=== PATIENT | female | born 1990 | race Caucasian/White ===

== ENCOUNTER 2018-02-14 10:55 | Day surgery (SDC) | payer OTHER ==
[~2018-02-14] VITALS: Ht 160 cm; Wt 92.5 kg
[~2018-02-14 10:55] MED LIST: BUPRENORPHINE HC8 MG SL; PRENATAL VITAM1 EAC2 PO; TYLENOL EXTRA500 MG PO
--- NOTE | 2018-02-14 11:50 | NUR ---
PATIENT HAS BLUE/GREEN EMESIS OF 100 ML. PATIENT REPORTS NAUSEA WITH EVEN VITAMINS ON AN EMPTY STOMACH. DR. UNGER NOTIFIED.
--- NOTE | 2018-02-14 13:24 | NUR ---
02/14/18 1324 Norah Oviedo 1254- PT ARRIVES TO PACU FROM OR ON 6L O2 VIA MASK WITH SATS 100%. PT REACTIVE TO VERBAL STIMULUS AND ABLE TO COUGH AND DEEP BREATH EFFECTIVELY. RESP EVEN AND UNLABORED. PT VERBALIZES CRAMPING PAIN IN VAGINA AREA. ENMANUEL PAD IN PLACE WITH SMALL AMOUNT OF DRAINAGE NOTED. 1300- PT TITRATED TO RA. SATS 98%. PT COUGHING AND REPORTS FEELING LIKE MORE BLEEDING IS PRESENT. MODERATE AMOUNT OF DRAINAGE AND LARGE CLOT PRESENT. DR. UNGER NOTIFIED AND WILL COME TO VISUALIZE PT. ENMANUEL PAD MORE SATURATED WITH BLOOD. 1315- PT PT COUGHING AND DEEP BREATHING. RA SATS >90%. PT HAD COUGH ON ADMIT AND HAS DECLINED THE NEED FOR FLU VACCCINE AT THIS TIME. 1320- DR. UNGER AT BEDSIDE. MANUAL REMOVAL OF CLOT FROM VAGINA DONE BY DR. UNGER. 75 EBL. NO ACTIVE BLEEDING AFTER CLOT REMOVAL NOTED WITH FUNDAL MASSAGE. METHERGINE ORDERED. 1323- PT SITTING UP AND COUGHING AND STATES SHE FEELS SHE PASSED ANOTHER CLOT. GOLF BALL SIZED CLOT PASSED AND NOTED ON ENMANUEL PAD. DR. UNGER NOTIFIED.
--- NOTE | 2018-02-14 14:07 | NUR ---
SOUP, ICED WATER AND PUDDING GIVEN. CALL LIGHT W/IN REACH. FAMILY @ BS.
[2018-02-14] MEDS ORDERED: MOTRIN IB200 MG PO (14:57)
--- NOTE | 2018-02-14 15:06 | NUR ---
DC INSTRUCTIONS GIVEN IN PRESENCE OF FAMILY AND ALL VERBALIZE UNDERSTANDING. PATIENT DRESSING SELF.
--- NOTE | 2018-02-14 15:28 | NUR ---
LE 1515: PATIENT TRANSFERS SELF TO AND PERSONAL VEHICLE AND DOES THAT WELL.
--- NOTE | 2018-03-25 07:13 | OR ---
[facility] [address] [facility] [place], [place] [address] Signed DATE OF OPERATION: 02/14/2018 SURGEON: Agustina Scott DO PREOPERATIVE DIAGNOSES: 1. Missed , approximately 8 weeks. 2. Rh negative status post RhoGAM. 3. Narcotic dependence in remission. POSTOPERATIVE DIAGNOSES: 1. Missed , approximately 8 weeks. 2. Rh negative status post RhoGAM. 3. Narcotic dependence in remission. SURGERY PERFORMED: Suction D and C. ANESTHESIA: MAC. ESTIMATED BLOOD LOSS: 100 mL. SPECIMEN: Products of conception. COMPLICATION: None. FINDINGS: Normal external genitalia. Normal vagina. Cervix slightly open and easily dilated. Hemostasis at the end of the procedure and products of conception noted in the suction tubing. INDICATIONS: Ms. Ayala is a pleasant 27-year-old, G3, P1-0-2-1, who was recently diagnosed with an intrauterine demise at 8-1/2 weeks. She had a previous early SAB resulting in a suction D and C approximately 6 months ago. She is Rh negative and received RhoGAM in the emergency department. Of note, she has struggled with narcotic dependence in the past and is under treatment with buprenorphine with Dr. Abram Juares. We reviewed options Electronically Signed By: AGUSTINA SCOTT DO 03/25/18 0713 PATIENT NAME: ANAM AYALA OPERATIVE REPORT DATE OF : 88 REPORT #: [id number] PHYSICIAN: AGUSTINA SCOTT DO PCP: MARIS MANNING MD REPORT IS CONFIDENTIAL AND NOT TO BE RELEASED WITHOUT AUTHORIZATION [facility] [address] [place], [place] [address] Signed for treatment of miscarriage including expectant management, medical management, or surgical management. The patient wishes to proceed with suction D and C. We reviewed risks, benefits, and alternatives in detail. TECHNIQUE: The patient was taken to the operating room where a time-out was performed to confirm correct patient, correct procedure. MAC anesthesia was adequately established. The patient was prepped and draped in the dorsal lithotomy position with her feet in Yellofin stirrups. ICPs were on and running. The patient received doxycycline 200 mg p.o. 1 hour preoperatively per ACOG guidelines and no heparin was indicated. A weighted speculum was placed in the vagina and the anterior lip of the cervix was grasped with an Allis clamp. The cervix was serially dilated using Hegar dilators and the cervix was noted to be slightly dilated and soft at the beginning of the procedure. Serial dilation to #11 Hegar dilator was performed, at which point, a #11 curved curette was selected and placed into the cervical os and advanced gently until reached the fundus. Suction was then obtained to the green zone and the curette was slowly withdrawn, performing a circumferential curettage with good return of products of conception. Several passes were made with the suction curette with decreasing amounts of products of conception noted. A large sharp curette was then performed and the intrauterine cavity gently probed and a small amount of products of conception were noted from the left posterior aspect of the vaginal cuff. Another pass was then performed with the suction curettage and no additional products of conception were noted. The uterus began to involute and bleeding stopped. The Allis clamp was removed and the patient was then taken the PACU in good and stable condition. Sponge, needle, and instrument count were correct x2 at the end the procedure. Of note, the patient did have a small amount of bleeding in the PACU and was treated with Methergine 0.2 mg IM x1 dose with no additional bleeding noted. Please see progress note for details. Agustina Scott DO JDW/MODL /[id number] Electronically Signed By: AGUSTINA SCOTT DO 03/25/18 0713 PATIENT NAME: ANAM AYALA OPERATIVE REPORT DATE OF : [birth year] REPORT #: [id number] PHYSICIAN: AGUSTINA SCOTT DO PCP: MARIS MANNING MD REPORT IS CONFIDENTIAL AND NOT TO BE RELEASED WITHOUT AUTHORIZATION [facility] [address] [place] [address] [place] [address] Signed Copies: ~ Electronically Signed By: AGUSTINA SCOTT DO 03/25/18 0713 PATIENT NAME: ANAM AYALA OPERATIVE REPORT DATE OF : [birth year] REPORT #: [id number] PHYSICIAN: AGUSTINA SCOTT DO PCP: MARIS MANNING MD REPORT IS CONFIDENTIAL AND NOT TO BE RELEASED WITHOUT AUTHORIZATION
== END 2018-02-14 15:15 | disposition home or self-care (01) ==
LOC: DS 10:55
PROVIDERS: Obstetrics & Gynecology
PROC: 10D17Z9 Manual Extraction of Products of Conception, Retained, Via Natural or Artificial Opening (ICD-10-PCS; principal; 2018-02-14 12:00)
DX: O02.1 Missed abortion (principal); F11.20 Opioid dependence, uncomplicated; Z79.899 Other long term (current) drug therapy; Z98.890 Other specified postprocedural states
CPT/HCPCS: 00952; 88305; 94640; J1100; J1885; J2210; J2250; J2405; J2704; J3010; J7120

== ENCOUNTER 2018-02-21 12:15 | Emergency (ER) | payer OTHER ==
[~2018-02-21] VITALS: Ht 160 cm; Wt 92.5 kg
[~2018-02-21 12:15] MED LIST changes: +MOTRIN IB200 MG PO
--- OUTSIDE RECORDS SUMMARY | 2018-02-21 12:20 | XMS ---
PreManage Notification: ANAM CHATMAN Security Triage Technician Events No recent Security Events currently on file CRITERIA MET - [facility] 2 Visits in 30 Days CARE PROVIDERS BECKA PRITCHETT Primary Care Current PHONE: Unknown Clarissa Parker Primary Care Current PHONE: Unknown Fred has no Care Guidelines for this patient. [place] VISIT COUNT (12 MO.) [address] [place] [address] TOTAL 2 NOTE: Visits indicate total known visits. ED/UCC VISIT TRACKING (12 MO.) 02/21/2018 12:16 [facility] [place] TYPE: Emergency COMPLAINT: - VAGINAL BLEEDING,POST OP PROBLEM 02/02/2018 17:35 [facility] [place] TYPE: Emergency COMPLAINT: - VAGINAL BLEEDING; APROX. 8 WEEKS DIAGNOSES: - Missed INPATIENT VISIT TRACKING (12 MO.) No inpatient visits to display in this time frame [email or web address]
== END 2018-02-21 14:10 | disposition home or self-care (01) ==
LOC: ED 12:15
DX: N93.9 Abnormal uterine and vaginal bleeding, unspecified (principal); F32.9 Major depressive disorder, single episode, unspecified; F41.9 Anxiety disorder, unspecified; L40.9 Psoriasis, unspecified; Z79.899 Other long term (current) drug therapy
CPT/HCPCS: 80048; 81001; 84702; 85025; 96360; 99284-25; J7030

== ENCOUNTER 2018-10-22 14:49 | Emergency (ER) | payer OTHER ==
[~2018-10-22] VITALS: Ht 160 cm; Wt 99.8 kg
[~2018-10-22 14:49] MED LIST changes: +PROMETHAZINE HC25 M1 PO
--- OUTSIDE RECORDS SUMMARY | 2018-10-22 14:52 | XMS ---
PreManage Notification: ANAM CHATMAN Security Research Quality Assurance Analyst Events No recent Security Events currently on file CRITERIA MET - [facility] - [facility] CARE PROVIDERS KERRI [facility] 02/22/2018-Current PHONE: [phone] BECKA PRITCHETT Primary Care Current PHONE: Unknown RYANNE LAN Primary Care Current PHONE: Unknown Clarissa Parker Primary Care Current PHONE: Unknown Fred has no Care Guidelines for this patient. Care History Medical/Surgical 02/22/2018 [facility] - Patient is currently established with [facility]. If patient is seen in the ED during business hours. Please contact CHWs at [facility]. Care Recommendation: This patient has had 5 or more Emergency Department visits in the last 12 months.\T\nbsp; Patient requires education on the scope and purpose of the ED as an acute care provider not a Primary Care Provider and should not be utilized for chronic conditions.\T\nbsp; These are guidelines and the provider should exercise clinical judgment when providing care. E.D. VISIT COUNT (12 MO.) 4 [facility]. TOTAL 4 NOTE: Visits indicate total known visits. ED/UCC VISIT TRACKING (12 MO.) 10/22/2018 14:50 [facility] [place] [facility] [place] TYPE: Emergency COMPLAINT: - BREATHING ISSUES 09/20/2018 23:18 [facility] [place] [facility] [place] TYPE: Emergency COMPLAINT: - DRUG WITHDRAWL DIAGNOSES: - Opioid dependence with withdrawal 02/21/2018 12:16 [facility] [place] [facility] [place] [place] TYPE: Emergency COMPLAINT: - VAGINAL BLEEDING,POST OP PROBLEM DIAGNOSES: - Other bed bug exterminator (current) drug therapy - Psoriasis, unspecified - Abnormal uterine and vaginal bleeding, unspecified - Anxiety disorder, unspecified - Major depressive disorder, single episode, unspecified 02/02/2018 17:35 [facility] [place] TYPE: Emergency COMPLAINT: - VAGINAL BLEEDING; APROX. 8 WEEKS DIAGNOSES: - Missed INPATIENT VISIT TRACKING (12 MO.) No inpatient visits to display in this time frame [email or web address]
[2018-10-22] MEDS ORDERED: VENTOLIN HFA18 GM INH (15:29)
[2018-10-22] MEDS ORDERED: ZITHROMAX250 MG PO (15:29)
== END 2018-10-22 15:45 | disposition home or self-care (01) ==
LOC: ED 14:49
DX: J18.9 Pneumonia, unspecified organism (principal)
CPT/HCPCS: 71046; 94640; 99283-25

== ENCOUNTER 2018-11-05 14:31 | Emergency (ER) | payer OTHER ==
[~2018-11-05] VITALS: Ht 160 cm; Wt 99.8 kg
[~2018-11-05 14:31] MED LIST changes: +VENTOLIN HFA18 GM INH; +ZITHROMAX250 MG PO
--- OUTSIDE RECORDS SUMMARY | 2018-11-05 14:34 | XMS ---
PreManage Notification: ANAM CHATMAN Security Drafter Commercial Events No recent Security Events currently on file CRITERIA MET - [facility] - Has Care Guidelines - PDMP - [facility] - 2 Visits in 30 Days CARE PROVIDERS MARIS MANNING [facility] 02/22/2018-Current PHONE: [phone] BECKA PRITCHETT Primary Care Current PHONE: Unknown Clarissa Parker Primary Care Current PHONE: Unknown Fred has no Care Guidelines for this patient. Care History Medical/Surgical 02/22/2018 [facility] - Patient is currently established with [facility]. If patient is seen in the ED during business hours. Please contact CHWs at [facility]. Care Recommendation: This patient has [...] providing care. E.D. VISIT COUNT (12 MO.) 5 [facility] [place] TOTAL 5 NOTE: Visits indicate total known visits. ED/UCC VISIT TRACKING (12 MO.) 11/05/2018 14:31 [facility] [place] TYPE: Emergency COMPLAINT: - VOMITING, COUGH 10/22/2018 14:50 [facility] [place] TYPE: Emergency COMPLAINT: - BREATHING ISSUES DIAGNOSES: - Pneumonia, unspecified organism - Wheezing 09/20/2018 23:18 [facility] [place] TYPE: Emergency COMPLAINT: - DRUG WITHDRAWL DIAGNOSES: - Opioid dependence with withdrawal 02/21/2018 12:16 [facility] [place] TYPE: Emergency COMPLAINT: - VAGINAL BLEEDING,POST OP PROBLEM DIAGNOSES: - Other intermediate (current) drug therapy - Psoriasis, unspecified - Abnormal uterine and vaginal bleeding, unspecified - Anxiety disorder, unspecified - Major depressive disorder, single episode, unspecified 02/02/2018 17:35 [facility] [place] TYPE: Emergency COMPLAINT: - VAGINAL BLEEDING; APROX. 8 WEEKS DIAGNOSES: - Missed INPATIENT VISIT TRACKING (12 MO.) No inpatient visits to display in this time frame [email or web address]
[2018-11-05] MEDS ORDERED: ONDANSETRON ODT8 MG PO (16:56)
[2018-11-05] MEDS ORDERED: ALBUTEROL2.5 MG/3 M INH (16:56)
[2018-11-05] MEDS ORDERED: PREDNISONE20 MG PO (16:56)
== END 2018-11-05 17:10 | disposition home or self-care (01) ==
LOC: ED 14:31
DX: J40 Bronchitis, not specified as acute or chronic (principal); J98.01 Acute bronchospasm
CPT/HCPCS: 71046; 94640; 99283-25; J7512

== ENCOUNTER 2019-11-22 15:21 | Emergency (ER) | payer OTHER ==
[~2019-11-22] VITALS: Ht 160 cm; Wt 99.8 kg
[~2019-11-22 15:21] MED LIST changes: +ALBUTEROL2.5 MG/3 M INH; +ONDANSETRON ODT8 MG PO; +PREDNISONE20 MG PO
[2019-11-22] MEDS ORDERED: ZITHROMAX250 MG PO (19:31)
[2019-11-22] MEDS ORDERED: ALBUTEROL2.5 MG/3 M INH (19:31)
[2019-11-22] MEDS ORDERED: PREDNISONE20 MG PO (19:31)
== END 2019-11-22 20:25 | disposition home or self-care (01) ==
LOC: ED 15:21
DX: J45.901 Unspecified asthma with (acute) exacerbation (principal)
CPT/HCPCS: 71046; 80053; 85025; 94640; 96361; 96374; 96375; 99285-25; C9803; J2405; J2930; J7030

== ENCOUNTER 2021-07-21 05:18 | Inpatient (IN) | payer OTHER ==
--- NOTE | 2021-07-21 16:52 | PR ---
[facility] [address] [place], [place] [address] Signed Progress Notes IP Datetime Report Generated by PRETTY: 07/21/2021 16:52 PROGRESS NOTES: [id number] Impression: Reassuring Heart Rate Procedures: Sterile Vag Exam Plan: Continue Present Management Informed Consent Obtain: Vaginal Delivery; Section Delivery Other Informed Consents: Reviewed continued trial of vaginal delivery vs C/S VITAL SIGNS: [id number] Vital Signs: Reviewed; Within Normal Limits EXAM: [id number] Dilatation: 8.0 Effacement: 100 Station: -1 Contractions: Irregular MEMBRANES: [id number] Comments: Physician present and pushing w/ contractions since complete. ROT position noted; attempted resolution of transverse position w/ maternal positional changes and gentle internal rotational maneuvers. Excellent maternal expulsive efforts. Significant caput noted. Discussed options for continued trail of vaginal delivery vs primary LTCS. Reviewed ACOG "Safe Prevention of the Primary C/S" recommendations for allowance of maternal pushing at least 2 hrs and recommendation for manual rotation of occiput as above. Reviewed adequate pelvis, EFW, and last delivery in detail. Pt desires to continue w/ expulsive efforts, but discussed at C/S may be indicated if continued transverse positon and transverse arrest diagnosed. Pt and partner understand and agree. FETUS A: [id number] FHR Baseline: 120 Variability: Moderate 6-25bpm Accelerations: 15X15 Decelerations: None FHR Category: Category I Presentation: Vertex Comments on Fetus A: No evidence of metabolic acidosis FETUS B: [id number] Signing Physician: Agustina Scott DO Copies: *Electronically Signed* 07/21/211651 AGUSTINA SCOTT DO PATIENT NAME: ANAM CHATMAN PROGRESS NOTE DATE OF : 88 PHYSICIAN: AGUSTINA SCOTT DO RPT #: [id number] REPORT IS CONFIDENTIAL AND NOT TO BE RELEASED WITHOUT AUTHORIZATION [address] [place] [address] Signed ~ *Electronically Signed* 07/21/211651 AGUSTINA SCOTT DO PATIENT NAME: ANAM CHATMAN PROGRESS NOTE DATE OF : [birth year] PHYSICIAN: AGUSTINA SCOTT DO RPT #: [id number] REPORT IS CONFIDENTIAL AND NOT TO BE RELEASED WITHOUT AUTHORIZATION
--- NOTE | 2021-07-21 17:23 | PR ---
[facility] [address] [place], [place] [address] Signed Progress Notes IP Datetime Report Generated by CPN: 07/21/2021 17:23 PROGRESS NOTES: [id number] Impression: Arrest of Dilatation/Descent Procedures: Sterile Vag Exam Plan: Deliver- Section Informed Consent Obtain: Section Delivery Other Informed Consents: Reviewed continued trial of vaginal delivery vs C/S VITAL SIGNS: [id number] Vital Signs: Reviewed; Within Normal Limits EXAM: [id number] Dilatation: 8.0 Effacement: 100 Station: -1 Contractions: Irregular MEMBRANES: [id number] Comments: Pt continues w/ excellent maternal expulsive efforts but despite best efforts no descent of the vertex noted. Significant caput and perineal edema noted. Risks / benefits / alternatives discussed in detail and pt and partner wish to proceed w/ delivery. OR crew, anesthesia, and Dr. Huitron notified. FETUS A: [id number] FHR Baseline: 120 Variability: Moderate 6-25bpm Accelerations: 15X15 Decelerations: None FHR Category: Category I Presentation: Vertex Comments on Fetus A: No evidence of metabolic acidosis FETUS B: [id number] Signing Physician: Agustina Scott DO Copies: ~ *Electronically Signed* 07/21/21 1728 AGUSTINA SCOTT DO PATIENT NAME: ANAM CHATMAN PROGRESS NOTE DATE OF : 88 PHYSICIAN: AGUSTINA SCOTT #: [id number] REPORT IS CONFIDENTIAL AND NOT TO BE RELEASED WITHOUT AUTHORIZATION
--- NOTE | 2021-07-21 17:27 | PR ---
[facility] [address] [place], [place] [address] Signed Progress Notes IP Datetime Report Generated by CPN: 07/21/2021 17:27 PROGRESS NOTES: [id number] Impression: Arrest of Dilatation/Descent Procedures: Sterile Vag Exam Plan: Deliver- Section Informed Consent Obtain: Section Delivery Other Informed Consents: Reviewed continued trial of vaginal delivery vs C/S VITAL SIGNS: [id number] Vital Signs: Reviewed; Within Normal Limits EXAM: [id number] Dilatation: 8.0 Effacement: 100 Station: -1 Contractions: Irregular MEMBRANES: [id number] Comments: Also noted, during pushing, pt remembered that Dr. Cottrell did perform vacuum assisted operative delivery during last . Pt reports that she pushed for _ 80 minutes in last labor. FETUS A: [id number] FHR Baseline: 120 Variability: Moderate 6-25bpm Accelerations: 15X15 Decelerations: None FHR Category: Category I Presentation: Vertex Comments on Fetus A: No evidence of metabolic acidosis FETUS B: [id number] Signing Physician: Agustina Scott DO Copies: ~ *Electronically Signed* 07/21/21 8694 AGUSTINA SCOTT DO PATIENT NAME: ANAM CHATMAN PROGRESS NOTE DATE OF : 88 PHYSICIAN: AGUSTINA SCOTT DO RPT #: [id number] REPORT IS CONFIDENTIAL AND NOT TO BE RELEASED WITHOUT AUTHORIZATION
--- NOTE | 2021-07-21 20:16 | NUR ---
07/21/212015 Hortencia Otto-PATIENT BACK TO ROOM FROM OR ON RA. PATIENT IS DROWSY. RATES PAIN 2/10, DENIES NAUSEA. RESP EVEN AND UNLABROED.
--- NOTE | 2021-07-22 07:48 | PR ---
[facility] [address] [place], [place] [address] Signed PP Progress Notes Datetime Report Generated by CPN: 07/22/2021 07:48 SUBJECTIVE: [id number] Pain: Within Normal Limits Nausea/Vomiting: Denies Flatus: Yes Bowel Movement: No Vital Signs: [id number] Vital Signs: Reviewed; Within Normal Limits Cardiovascular: Normal Respiratory: Normal Abdomen/Uterus: Normal Lochia: Normal Vulva/Perineum: Not Done Breasts: Not Done CVA Tenderness: Normal Extremities: Normal Incision: Normal Progress: Normal Exam Comments: Fundus firm U-2 nontender. Incision healing well IMPRESSION/PLAN/PROCEDURES: [id number] Impression: Normal Progression Plan: Continue Present Management Other Procedures: Iron infusion Progress Notes: Pt seen and examined. Doing well. Ambulating, voiding, and tolerating full diet. Pain and lochia minimal. well. No fevers/chills. Hgb 8.8 and pt c/o some dizziness w/ prolonged standing. Pt likely d/c home today or tomorrow as baby is being transferred to [facility] for NICU care. Will reevaluate pt later today Signing Physician: Agustina Scott DO Copies: ~ *Electronically Signed* 07/22/21 0748 AGUSTINA SCOTT DO PATIENT NAME: ANAM CHATMAN PROGRESS NOTE DATE OF : 88 PHYSICIAN: AGUSTINA SCOTT DO RPT #: [id number] REPORT IS CONFIDENTIAL AND NOT TO BE RELEASED WITHOUT AUTHORIZATION
== END 2021-07-22 15:17 | disposition home or self-care (01) | DRG 787 ==
LOC: FBC 05:18
PROVIDERS: ADMIT Obstetrics & Gynecology; ATTEND Obstetrics & Gynecology
PROC: 10D00Z1 Extraction of Products of Conception, Low, Open Approach (ICD-10-PCS; principal; 2021-07-21 17:00)
DX: O99.824 Streptococcus B carrier state complicating childbirth (principal); F11.20 Opioid dependence, uncomplicated; Z3A.37 37 weeks gestation of pregnancy; Z37.0 Single live birth; Z20.822 Contact with and (suspected) exposure to COVID-19; O64.0XX0 Obstructed labor due to incomplete rotation of fetal head, not applicable or unspecified; O62.1 Secondary uterine inertia; O99.324 Drug use complicating childbirth; Z98.890 Other specified postprocedural states; Z79.899 Other long term (current) drug therapy
CPT/HCPCS: 36415; 82728; 82803; 83030; 85027; 85060; 85610; 85730; 86850; 86870; 86900; 86901; 87502; A9270; C9803; J0456; J0690; J1100; J1885; J2405; J2540; J2550; J2590; J2790; J2795; J3010; J3105; J7121; Q0138; U0003

== ENCOUNTER 2024-10-30 15:47 | Inpatient (IN) | payer BC, OTHER ==
[~2024-10-30] VITALS: Ht 160 cm; Wt 104.3 kg
[2024-11-14] MEDS ORDERED: LACTATED RINGER'S 1,000 ML IV PRN (05:30)
[2024-11-14] MEDS ORDERED: SOD+POT BICARB/CITRIC ACID 2 EA TABLET.EFF PO ONE (05:30)
[2024-11-14 06:10] LABS: AMPHETAMINES, URINE NEGATIVE (NEGATIVE); BARBITURATES, URINE NEGATIVE (NEGATIVE); BENZODIAZEPINE, URINE NEGATIVE (NEGATIVE); CANNABINOID, URINE POSITIVE (NEGATIVE); COCAINE, URINE NEGATIVE (NEGATIVE); ECSTASY, URINE NEGATIVE (NEGATIVE); FENTANYL, URINE NEGATIVE (NEGATIVE); METHADONE, URINE NEGATIVE (NEGATIVE); OPIATES, URINE NEGATIVE (NEGATIVE); OXYCODONE, URINE NEGATIVE (NEGATIVE); PHENCYCLIDINE, URINE NEGATIVE (NEGATIVE)
[2024-11-14 06:12] LABS: MCH 31.8 PG (25.6-32.2); MCHC 35.5 g/dL (32.2-35.5); MCV 89.8 fL (79.4-94.8); RBC 3.33 M/uL (3.93-5.22)
[2024-11-14 06:27] VITALS: BP 106/58
[2024-11-14 06:39] LABS: ABO A
[2024-11-14 06:40] LABS: ANTIBODY SCREEN NEGATIVE; RH NEGATIVE
[2024-11-14] MEDS ORDERED: CEFAZOLIN SODIUM 2 GM in SODIUM CHLORIDE 0.9% 100 ML IV SCH (07:00)
[2024-11-14] MEDS ORDERED: LIDOCAINE HCL 2% 5 ML SDV ONE (07:11)
[2024-11-14] MEDS ORDERED: OXYTOCIN 10 UNITS/ML VIAL ONE ×2 (07:11→08:21)
[2024-11-14] MEDS ORDERED: BUPIVACAINE 0.75% IN DEXTROSE 2 ML AMP ONE (07:11)
[2024-11-14] MEDS ORDERED: fentaNYL citrate 100 MCG/2 ML VIAL ONE (07:11)
[2024-11-14] MEDS ORDERED: MORPHINE SULFATE 1 MG/ML VIAL ONE (07:11)
[2024-11-14] MEDS ORDERED: LACTATED RINGER'S 1,000 ML IV ONE ×2 (07:19→08:22)
[2024-11-14 07:27] LABS: AHG CROSSMATCH COMPATIBLE
[2024-11-14] MEDS ORDERED: PHENYLEPHRINE HCL IN 0.9% NACL 1 MG/10 ML SYR ONE (07:41)
[2024-11-14] MEDS ORDERED: NALOXONE HCL 0.4 MG SYR IV PRN (08:00)
[2024-11-14] MEDS ORDERED: PROCHLORPERAZINE EDISYLATE 10 MG/2 ML VIAL IV PRN (08:00)
[2024-11-14] MEDS ORDERED: HYDROmorphone HCL 1 MG/ML SYR IV PRN (08:00)
[2024-11-14] MEDS ORDERED: Ropivacaine HCl 0.5% 30 ML VIAL ONE (08:03)
[2024-11-14] MEDS ORDERED: DEXAMETHASONE SOD PHOS 4 MG/ML VIAL ONE (08:03)
[2024-11-14] MEDS ORDERED: SODIUM CHLORIDE 0.9% 20 ML IV ONE (08:03)
[2024-11-14] MEDS ORDERED: LACTATED RINGER'S 1,000 ML IV SCH (09:07)
[2024-11-14] MEDS ORDERED: PROMETHAZINE HCL 25 MG SUPP PR PRN (09:15)
[2024-11-14] MEDS ORDERED: METOCLOPRAMIDE HCL 10 MG/2 ML SDV IV PRN (09:15)
[2024-11-14] MEDS ORDERED: OXYTOCIN/0.9 % SODIUM CHLORIDE 500 ML IV SCH (09:15)
[2024-11-14] MEDS ORDERED: OXYCODONE/APAP 5/325 TAB PO PRN (09:15)
[2024-11-14] MEDS ORDERED: PROMETHAZINE HCL 25 MG TAB PO PRN (09:15)
[2024-11-14] MEDS ORDERED: HYDROCODONE/ACETA 5/325 TAB PO PRN (09:15)
[2024-11-14 09:36] VITALS: BP 113/67
--- NOTE | 2024-11-14 09:43 | NUR ---
11/14/24 0943 Asha Aguilar 0844- FUNDAL CHECK DONE IN THE OR PRIOR TO TRANSFER TO [facility] ROOM. 0846- PT IS TRANSFERED TO [facility] ROOM 103. PT IS TALKING WITH RN AND SMILING. PT DENIES PAIN AND NAUSEA. BEDSIDE REPORT RECEIVED FROM ABBY LARSEN. IV INFUSING IN THE RIGHT FOREARM, WNL. VITAL SIGNS OBTAINED. PT DENIES ANY DIFFICULTY BREATHING, SPINAL IS AT T-5. 0900- PT REQUESTING WATER AND TO SIT UP SOME IN BED. SIP OF WATER PROVIDED AND HOB INCREASED SLIGHTLY. PT CONTINUES TO DENY PAIN AND NAUSEA. 919-LR INFUSING IN R FOREARM, WNL. PT DENIES PAIN AND NAUSEA. BABY AT BREAST. BEDSIDE REPORT GIVEN TO ELISA GUPTA. ALL QUESTIONS AND CONCERNS ANSWERED. BED PLUGGED IN AND LOCKED. CARE TURNED OVER AT THIS TIME.
[2024-11-14] MEDS ORDERED: SIMETHICONE 80 MG CHEW PO SCH (11:00)
[2024-11-14] MEDS ORDERED: KETOROLAC TROMETHAMINE 30 MG/ML VIAL IV SCH (14:00)
[2024-11-14] MEDS ORDERED: ENOXAPARIN SODIUM 40 MG/0.4 ML SYR SUB-Q SCH (18:00)
[2024-11-14] MEDS ORDERED: SENNOSIDES/DOCUSATE 1 EA TAB PO SCH (21:00)
[2024-11-15] MEDS ORDERED: LACTATED RINGER'S 1,000 ML IV SCH (05:00)
[2024-11-15 05:12] LABS: MCH 31.7 PG (25.6-32.2); MCHC 35.0 g/dL (32.2-35.5); MCV 90.5 fL (79.4-94.8); RBC 3.06 M/uL (3.93-5.22)
[2024-11-15 06:14] LABS: ABO A; ANTIBODY SCREEN NEGATIVE; FETAL HEMOGLOBIN SCREEN NEGATIVE; RH NEGATIVE
[2024-11-15 06:15] LABS: RHIG DOSE 1; RHIG STATUS CANDIDATE
[2024-11-15] MEDS ORDERED: PROCHLORPERAZINE EDISYLATE 10 MG/2 ML VIAL IV PRN (08:00)
--- NOTE | 2024-11-15 12:15 | PR ---
[facility] [address] [facility] [place], [place] [address] Signed PP Progress Notes Datetime Report Generated by CPN: 11/15/2024 12:15 SUBJECTIVE: [id number] Pain: Within Normal Limits Nausea/Vomiting: Denies Bowel Movement: No Vital Signs: [id number] Vital Signs: Reviewed; Within Normal Limits Cardiovascular: Normal Respiratory: Normal Abdomen/Uterus: Normal Lochia: Normal CVA Tenderness: Normal Extremities: Normal Incision: Normal Progress: Normal Exam Comments: Fundus firm U-2 nontender. Incision bandaged IMPRESSION/PLAN/PROCEDURES: [id number] Impression: Normal Progression Plan: Continue Present Management Progress Notes: Pt seen and examined. Doing well. Ambulating, voiding, and tolerating full diet. Pain and lochia minimal. well. No fevers/chills or other concerns. Anticipate d/c home tomorrow. Reviewed Hgb 9.7 Signing Physician: Agustina Scott DO Copies: ~ *Electronically Signed* 11/15/24 3637 AGUSTINA SCOTT (HAV[place]) DO PATIENT NAME: ANAM CHATMAN PROGRESS NOTE DATE OF : 88 PHYSICIAN: AGUSTINA SCOTT) DO RPT #: [id number] REPORT IS CONFIDENTIAL AND NOT TO BE RELEASED WITHOUT AUTHORIZATION
[2024-11-15] MEDS ORDERED: IBUPROFEN 600 MG TAB PO SCH (14:00)
--- NOTE | 2024-11-16 09:05 | PR ---
[facility] [address] [place], [place] [address] Signed PP Progress Notes Datetime Report Generated by CPN: 11/16/2024 09:05 Pain: Within Normal Limits Nausea/Vomiting: Denies Flatus: Yes Bowel Movement: No Vital Signs: Reviewed; Within Normal Limits Cardiovascular: Normal Respiratory: Normal Abdomen/Uterus: Normal Lochia: Normal Vulva/Perineum: Normal Breasts: Not Done CVA Tenderness: Normal Extremities: Normal Incision: Normal Progress: Normal Exam Comments: Fundus firm U-2 nontender. Incision healing well. Ok to remove kristin prior to d/c. Impression: Normal Progression Plan: Remove Kristin; Discharge Progress Notes: Pt seen and examined. Doing well. Ambulating, voiding, and tolerating full diet. Pain and lochia minimal. well. Incision healing well. No concerns. Desires d/c home. S/P bilateral salpingectomy for pp contraception. Reviewed d/c meds (ibuprofen, Umpire, iron, and zofran) and d/c instructions. F/U 2 wks. Signing Physician: Agustina Scott DO Copies: ~ *Electronically Signed* 11/16/24904 AGUSTINA SCOTT (HAVEN) DO PATIENT NAME: ANAM CHATMAN PROGRESS NOTE DATE OF : 88 PHYSICIAN: AGUSTINA SCOTT (JD) DO RPT #: [id number] REPORT IS CONFIDENTIAL AND NOT TO BE RELEASED WITHOUT AUTHORIZATION
--- NOTE | 2024-11-16 13:51 | OR ---
[facility] [address], [place] [address] Signed DATE OF OPERATION: 11/14/2024 SURGEON: Agustina Scott DO PREOPERATIVE DIAGNOSES: 1. Term . 2. History of prior section. 3. Gestational diabetes, diet controlled. POSTOPERATIVE DIAGNOSES: 1. Term . 2. History of prior section. 3. Gestational diabetes, diet controlled. PROCEDURE PERFORMED: Repeat low transverse section. ANESTHESIA: Spinal with postoperative TAP blocks. ESTIMATED BLOOD LOSS: 600 mL. COMPLICATIONS: None. DRAINS: Ga to gravity. SPECIMENS: Cord blood for routine analysis. FINDINGS: Delivery of viable male , 8 pounds 5 ounces with Apgars of 9 and 9. No nuchal cord, and the was delivered in the LOT position. Normal uterus, tubes, and ovaries with minimal scarring of the lower uterine segment. Clear fluid, but likely polyhydramnios. INDICATIONS: Ms. Ayala is a very pleasant 34-year-old multiparous female who presents for scheduled Electronically Signed By: AGUSTINA SCOTT DO (JD) 11/16/24 1351 PATIENT NAME: ANAM AYALA OPERATIVE REPORT DATE OF : [birth year] REPORT #: [id number] PHYSICIAN: AGUSTINA SCOTT DO (JD) PCP: AGUEDA DELGADILLO DNP REPORT IS CONFIDENTIAL AND NOT TO BE RELEASED WITHOUT AUTHORIZATION [facility] [address] [place] [address] [place], [place] [address] Signed repeat low transverse section. Risks, benefits, and alternatives were discussed in detail with the patient. The patient understands and wishes to proceed with the procedure. TECHNIQUE: The patient was taken to the OR where a time-out was performed to confirm correct patient, correct procedure. Spinal anesthesia was adequately established. The patient was prepped and draped in the supine position with a bump in the right hip. A Ga catheter was inserted. Once neural axial anesthesia was noted to be adequate, a Pfannenstiel skin incision was made through the prior incision and carried down to the fascia. Fascia was nicked in the midline, and fascial incision was extended bilaterally using curved Monahan scissors. The fascia was grasped with Keturah's, elevated, and the underlying rectus was dissected off bluntly and sharply. The rectus was then bluntly divided, and the peritoneum was entered without difficulty. The peritoneal incision was extended cephalad, caudad with a combination of sharp and blunt dissection. Lower uterine segment was identified, and no significant pelvic or abdominal adhesions were noted. Marshall self-retractor was placed. Hysterotomy was performed using a surgical scalpel, and clear amniotic fluid was noted. Hysterotomy was extended bilaterally using blunt dissection. The was then delivered in the LOT position with the assistance of fundal pressure with no nuchal cord and clear amniotic fluid. Polyhydramnios was appreciated. The was delivered easily and was vigorous and cried upon delivery. Delayed cord clamping times approximately 2 minutes was observed. Cord was doubly clamped and cut, and the handed over to the waiting pediatric team for further care. Cord blood was obtained for routine analysis. The placenta was expressed, intact with a centrally inserted 3-vessel cord. The uterine cavities were cleared of any remaining products of conception or clot. Hysterotomy was then repaired in 2-layer of Monocryl, the first being a running locked layer and the second being a running imbricating layer in the vertical manner with excellent hemostasis appreciated. Uterus, tubes, and ovaries were carefully examined and noted to be hemostatic. Small amount of oozing of the hysterotomy was observed, and this was made hemostatic with a combination of Bovie electrocautery and Andrea. Once hemostasis was appreciated, the Marshall self-retractor was removed, and peritoneum was reapproximated using 2-0 Vicryl in a running nonlocked manner. The rectus was then reapproximated loosely in the midline with 3 interrupted sutures of 0 Vicryl. Andrea was applied to the rectus sheath to ensure hemostasis. Fascia was reapproximated using 0 Vicryl in a running nonlocked manner. Subcu was made hemostatic with judicious use of Bovie electrocautery and then was reapproximated using 3-0 Vicryl Rapide. The skin was reapproximated using surgical anjali. The uterus was then Crede'd for a scant amount of blood, and the patient remained in the OR for postoperative TAP block. Sponge, needle, and instrument counts were correct x2 at the end of the procedure. Electronically Signed By: AGUSTINA VILLEGAS) DO UTE 11/16/24 1351 PATIENT NAME: ANAM AYALA OPERATIVE REPORT DATE OF : [birth year] REPORT #: [id number] PHYSICIAN: AGUSTINA SCOTT) PCP: AGUEDA DELGADILLO DNP REPORT IS CONFIDENTIAL AND NOT TO BE RELEASED WITHOUT AUTHORIZATION [address] [address] Signed Agustina Scott DO JDW/MODL /[id number] Copies: ~ Electronically Signed By: AGUSTINA SCOTT DO (JD) 11/16/24 1351 PATIENT NAME: ANAM AYALA OPERATIVE REPORT DATE OF : [birth year] REPORT #: [id number] PHYSICIAN: AGUSTINA SCOTT DO (JD) PCP: AGUEDA DELGADILLO DNP REPORT IS CONFIDENTIAL AND NOT TO BE RELEASED WITHOUT AUTHORIZATION
== END 2024-11-16 13:02 | disposition home or self-care (01) | DRG 788 ==
LOC: FBC 11-14 05:06
PROVIDERS: ADMIT Obstetrics & Gynecology; ATTEND Obstetrics & Gynecology
PROC: 4A1HXCZ Monitoring of Products of Conception, Cardiac Rate, External Approach (ICD-10-PCS; 2024-11-14)
PROC: 10D00Z1 Extraction of Products of Conception, Low, Open Approach (ICD-10-PCS; principal; 2024-11-14 07:30)
DX: O34.211 Maternal care for low transverse scar from previous cesarean delivery (principal); O24.420 Gestational diabetes mellitus in childbirth, diet controlled; O40.3XX0 Polyhydramnios, third trimester, not applicable or unspecified; Z3A.39 39 weeks gestation of pregnancy; Z37.0 Single live birth; O99.824 Streptococcus B carrier state complicating childbirth; O99.344 Other mental disorders complicating childbirth; F41.9 Anxiety disorder, unspecified; F32.A Depression, unspecified; O99.214 Obesity complicating childbirth; O26.893 Other specified pregnancy related conditions, third trimester; Z67.11 Type A blood, Rh negative
CPT/HCPCS: 01961; 36415; 80307; 83030; 85027; 86850; 86900; 86901; 86922; A9270; J0165; J0688; J1100; J1650; J1885; J2003; J2274; J2405; J2590; J2765; J2790; J2795; J3010; J7121